=== PATIENT | female | born 1960 | race Caucasian/White ===

== ENCOUNTER → 2021-08-10 | Outpatient (CLI) | payer BC | LOC: KOH-I 11:18 | DX: S92.351A Displaced fracture of fifth metatarsal bone, right foot, initial encounter for closed fracture (principal) | CPT/HCPCS: 73630 ==

== ENCOUNTER → 2021-08-24 | Outpatient (CLI) | payer BC | LOC: KOH-I 14:28 | DX: S92.321D Displaced fracture of second metatarsal bone, right foot, subsequent encounter for fracture with routine healing (principal); S92.331D Displaced fracture of third metatarsal bone, right foot, subsequent encounter for fracture with routine healing; S92.351D Displaced fracture of fifth metatarsal bone, right foot, subsequent encounter for fracture with routine healing | CPT/HCPCS: 73630 ==

== ENCOUNTER → 2021-10-22 | Outpatient (CLI) | payer BC | LOC: KOH-I 11:09 | DX: S92.351G Displaced fracture of fifth metatarsal bone, right foot, subsequent encounter for fracture with delayed healing (principal) | CPT/HCPCS: 73630 ==

== ENCOUNTER → 2021-11-19 | Outpatient (CLI) | payer BC | LOC: KOH-I 13:13 | DX: S92.321D Displaced fracture of second metatarsal bone, right foot, subsequent encounter for fracture with routine healing (principal); S92.351G Displaced fracture of fifth metatarsal bone, right foot, subsequent encounter for fracture with delayed healing; S92.331D Displaced fracture of third metatarsal bone, right foot, subsequent encounter for fracture with routine healing; X58.XXXD Exposure to other specified factors, subsequent encounter | CPT/HCPCS: 73630 ==

== ENCOUNTER → 2022-01-19 | Outpatient (CLI) | payer BC | LOC: KOH-I 16:21 | DX: S92.351G Displaced fracture of fifth metatarsal bone, right foot, subsequent encounter for fracture with delayed healing (principal); Z87.81 Personal history of (healed) traumatic fracture | CPT/HCPCS: 73630 ==

== ENCOUNTER → 2022-03-02 | Outpatient (CLI) | payer BC | LOC: KOH-I 15:43 | DX: Z87.81 Personal history of (healed) traumatic fracture (principal); S92.351D Displaced fracture of fifth metatarsal bone, right foot, subsequent encounter for fracture with routine healing | CPT/HCPCS: 73630 ==